=== PATIENT | female | born 1985 | race Two or more races ===

== ENCOUNTER 2018-04-15 21:36 | Emergency (ER) | payer OTHER ==
[~2018-04-15] VITALS: Ht 157.5 cm; Wt 70.8 kg
[2018-04-15] MEDS ORDERED: LAMICTAL XR100 MG (21:58)
[2018-04-15] MEDS ORDERED: PNEU16DI2 (22:00)
[2018-04-15] MEDS ORDERED: OBTREX DHA PRE1 EACH (22:00)
[2018-04-16] MEDS ORDERED: ZYNCOF 20-400120 ML PO (01:19)
== END 2018-04-16 01:34 | disposition home or self-care (01) ==
LOC: ER 21:36
DX: O26.892 Other specified pregnancy related conditions, second trimester (principal); R05 Cough; Z34.82 Encounter for supervision of other normal pregnancy, second trimester

== ENCOUNTER 2018-05-15 02:53 | Inpatient (IN) | payer OTHER ==
[~2018-05-15] VITALS: Ht 157.5 cm; Wt 79.4 kg
[~2018-05-15 02:53] MED LIST: LAMICTAL XR100 MG; OBTREX DHA PRE1 EACH; PNEU16DI2; ZYNCOF 20-400120 ML PO
== END 2018-05-16 20:10 | disposition home or self-care (01) | DRG 832 ==
LOC: OBS/DEL 02:53 → LDR 09:40
PROC: 4A1HXCZ Monitoring of Products of Conception, Cardiac Rate, External Approach (ICD-10-PCS; principal; 2018-05-15)
PROC: BY4FZZZ Ultrasonography of Third Trimester, Single Fetus (ICD-10-PCS; 2018-05-15)
PROC: BU4CZZZ Ultrasonography of Uterus and Ovaries (ICD-10-PCS; 2018-05-15)
DX: O60.03 Preterm labor without delivery, third trimester (principal); G40.802 Other epilepsy, not intractable, without status epilepticus; O99.353 Diseases of the nervous system complicating pregnancy, third trimester; Z34.03 Encounter for supervision of normal first pregnancy, third trimester

== ENCOUNTER 2018-05-20 11:39 | Outpatient (CLI) | payer OTHER ==
[2018-05-20] MEDS ORDERED: CEFADROXIL500 MG PO (15:42)
== END 2018-05-21 17:32 | disposition home or self-care (01) ==
LOC: OBS/DEL 11:39
DX: O23.43 Unspecified infection of urinary tract in pregnancy, third trimester (principal); Z34.83 Encounter for supervision of other normal pregnancy, third trimester; O99.353 Diseases of the nervous system complicating pregnancy, third trimester; G40.802 Other epilepsy, not intractable, without status epilepticus

== ENCOUNTER 2018-07-26 05:19 | Inpatient (IN) | payer OTHER ==
[~2018-07-26] VITALS: Ht 188 cm; Wt 78.9 kg
[~2018-07-26 05:19] MED LIST changes: +CEFADROXIL500 MG PO
== END 2018-07-28 14:26 | DRG 807 ==
LOC: OB/GYN 05:19 → LDR 05:19 → OB/GYN 13:04
PROVIDERS: ADMIT Obstetrics & Gynecology
PROC: 10E0XZZ Delivery of Products of Conception, External Approach (ICD-10-PCS; principal; 2018-07-26)
PROC: 4A1HXCZ Monitoring of Products of Conception, Cardiac Rate, External Approach (ICD-10-PCS; 2018-07-26)
PROC: 4A033R1 Measurement of Arterial Saturation, Peripheral, Percutaneous Approach (ICD-10-PCS; 2018-07-26)
DX: O80 Encounter for full-term uncomplicated delivery (principal); Z37.0 Single live birth; Z3A.38 38 weeks gestation of pregnancy; Z22.330 Carrier of Group B streptococcus